=== PATIENT | male | born 1965 | race Hispanic/Latino ===

== ENCOUNTER 2018-12-07 09:41 | Emergency (ER) | payer OTHER | END 2018-12-07 10:20 | disposition home or self-care (01) | LOC: BURERS 09:41 | DX: H81.12 Benign paroxysmal vertigo, left ear (principal); H61.22 Impacted cerumen, left ear; I10 Essential (primary) hypertension; E78.5 Hyperlipidemia, unspecified; Z79.899 Other long term (current) drug therapy | CPT/HCPCS: 99283 ==